=== PATIENT | female | born 1960 | race Caucasian/White ===

== ENCOUNTER 2020-01-29 16:34 | Emergency (ER) | payer MEDICARE, MEDICAID, SELFPAY ==
[2020-01-29 16:55] VITALS: BP 106/65; PULSE 96; RESP 26; TEMP 36.6; O2SAT 94; BMI 20.5
[2020-01-29 17:19] VITALS: BP 101/59; PULSE 96; RESP 26; O2SAT 96
[2020-01-29 17:30] LABS: Basophils # 0.1 10^3/uL (0.0-0.1); Basophils % 0.7 %; Eosinophils # 0.1 10^3/uL (0.0-0.8); Eosinophils % 0.7 %; Hemoglobin 12.2 g/dL (11.5-15.3); Lymphocytes # 1.6 10^3/uL (0.8-4.8); Lymphocytes % 21.9 %; Mean Corpuscular HGB Conc 33.9 g/dL (30.0-36.0); Mean Corpuscular Hemoglobin 30.1 pg (28.0-34.0); Mean Corpuscular Volume 88.9 fL (81-99); Mean Platelet Volume 11.2 fL (7.4-10.4); Monocytes # 0.8 10^3/uL (0.2-0.9); Monocytes % 10.5 %; Neutrophils # 4.8 10^3/uL (1.8-7.7); Neutrophils % 66.1 %; Nucleated Red Blood Cells % 0 %; Platelet Count 193 10^3/cmm (130-400); Red Blood Count 4.05 10^6/uL (4.1-5.3); Red Cell Distribution Width 13.5 % (12.1-15.1); White Blood Count 7.2 10^3/uL (4.0-10.0)
--- NOTE | 2020-01-29 17:44 | CTR_ITS ---
PROCEDURE INFORMATION: Exam: CT Head Without Contrast Exam date and time: 01/29/2020 5:54 PM Age: 59 years old Clinical indication: Alteration of consciousness; Somnolence (drowsiness); Additional info: Intoxicated seizures altered mental status TECHNIQUE: Imaging protocol: Computed tomography of the head without contrast. Radiation optimization: All CT scans at this facility use at least one of these dose optimization techniques: automated exposure control; mA and/or kV adjustment per patient size (includes targeted exams where dose is matched to clinical indication); or iterative reconstruction. COMPARISON: No relevant prior studies available. RADIATION DOSE METRICS: Total DLP: 619.63 mGy-cm FINDINGS: Brain: Normal. No hemorrhage. Unremarkable white matter. No mass effect. Ventricles: Normal. No ventriculomegaly. Bones/joints: Unremarkable. No acute fracture. Sinuses: Visualized sinuses are unremarkable. No fluid levels. Mastoid air cells: Visualized mastoid air cells are well aerated. Soft tissues: Unremarkable. CT/CT head wo con* [id number] IMPRESSION: No acute intracranial abnormality. Radiation Dose CTDIVOL = (mGy): DLP = 619.63 (mGy-cm)
[2020-01-29 17:57] LABS: Alanine Aminotransferase 10 U/L (0-33); Albumin Level 4.1 g/dL (3.5-5.2); Alcohol Level 105 mg/dL (0-10); Alkaline Phosphatase 112 IU/L (35-105); Anion Gap 17.2 (5-19); Aspartate Amino Transferase 16 U/L (0-32); Blood Urea Nitrogen 9 mg/dL (6-20); Calcium 8.8 mg/dL (8.5-10.5); Carbon Dioxide 25 mmol/L (22-29); Chloride 102 mmol/L (98-107); Globulin 2.6 g/dL (1.3-4.6); Glomerular Filtration Rate 85.6 mL/min (90-130); Glucose 104 mg/dL (65-115); Osmolality Calculated 288 mOsm/kg (285-295); Potassium 3.2 mmol/L (3.5-5.1); Sodium 141 mmol/L (136-145); Thyroid Stimulating Hormone 1.79 uIU/mL (0.27-4.20); Total Bilirubin 0.5 mg/dL (0.15-1.2); Total Protein 6.7 g/dL (6.6-8.7)
--- NOTE | 2020-01-29 18:07 | W.ED.GENADLT ---
Documented by User: Catrachito Heard DO 01/31/20 16:07 HPI - General Adult General: Chief complaint: General Medical Stated complaint: ETOH ON BOARD; WANT MED CHANGES Time Seen by Provider: 01/29/20 16:56 History of Present Illness: HPI narrative: 59-year-old female brought in by EMS initially on arrival she is nonresponsiv she reportedly she had been drinking heavily and had a seizure. EMS was called to a local convenience store where they found her she was essentially nonresponsive they were told had a history of seizures. But she is not been able to tell us anything initially. When I went back to the room to reevaluate her she was actually laying back and was not controlling her airway well and went to do a sternal rub and set her up she woke up and was nonverbal. She began breathing good and her sats were normal. She admits to drinking heavily today she has not taken her antiseizure medication she usually takes Keppra. She thinks she had a seizure and cannot really tell me much more than that there is very little in the way of old records to review. Onset (ago): hour(s) Severity: severe Associated symptoms: Reports seizures; Deny chest pain, dyspnea, nausea or vomiting Review of Systems Card: Denies: chest pain, edema, shortness of breath on exertion or shortness of breath when lying down Resp: Denies: shortness of breath, productive cough or non-productive cough GI: Denies: abdominal pain, nausea, vomiting, vomiting blood, coffee grounds in vomit, diarrhea, constipation, bloating, blood in stool or black tarry stool : Denies: flank pain, difficulty urinating, painful urination, urinary frequency or urinary urgency PFS ED PFSH: Social History Smoking and tobacco status: current every day smoker Physical Exam HENMT: COMMON NORMALS: normocephalic, head/scalp atraumatic, hearing grossly normal bilaterally, external ears normal, EAC's normal, TM's normal bilaterally, nasal mucous membranes and turbinates normal, moist oral mucous membranes and oropharynx normal HEAD & SCALP: normocephalic and atraumatic NOSE: nasal mucous membranes and turbinates normal EXTERNAL EAR: Yes external ears normal EXTERNAL AUDITORY CANAL: EAC's normal TYMPANIC MEMBRANE: TM's normal bilaterally Eye: COMMON NORMALS: PERRL, EOMs intact bilaterally, conjunctivae normal and no scleral icterus CONJUNCTIVA: Yes conjunctivae normal PUPIL: Yes PERRL Neck/C-Spine: COMMON NORMALS: full ROM, no lymphadenopathy, supple and no JVD Lymph: LYMPHATIC: no lymphadenopathy noted and no lymphedema noted Resp: COMMON NORMALS: normal respiratory effort, no retractions, no use of accessory muscles and clear to auscultation bilaterally AUSCULTATION: clear to auscultation bilaterally Cardio: COMMON NORMALS: no JVD, regular rate, regular rhythm and no murmurs RATE: regular rate RHYTHM: regular rhythm GI: COMMON NORMALS: soft to palpation and no hepatosplenomegaly AUSCULTATION: Yes normoactive bowel sounds PALPATION: Yes soft, No tender, No guarding and Yes no hepatosplenomegaly Extremity: COMMON NORMALS: normal to inspection, normal capillary refill, no clubbing, cyanosis or edema, no calf tenderness and no pedal edema Skin: COMMON NORMALS: no rashes or lesions noted GENERAL SKIN EXAM: no rashes or lesions noted Course Vital Signs: Vital signs: Vital Signs Temperature 99.0 F 01/29/20 20:34 Pulse Rate 102 H 01/29/20 20:34 Respiratory Rate 24 H 01/29/20 20:34 Blood Pressure 127/89 01/29/20 20:34 Pulse Oximetry 98 01/29/20 20:34 MDM - General Adult MDM Narrative: Medical decision making narrative: Care turned over to Dr. Dasilva at change of shift Lab Data: Labs: Lab Results 01/29/20 01/29/20 01/29/20 Range/Units 17:20 17:20 18:23 WBC 7.2 (4.0-10.0) 10^3/ uL RBC 4.05 L (4.1-5.3) 10^6/u L Hgb 12.2 (11.5-15.3) g/dL Hct 36.0 L (37.0-47.0) % MCV 88.9 (81-99) fL MCH 30.1 (28.0-34.0) pg MCHC 33.9 (30.0-36.0) g/dL RDW 13.5 (12.1-15.1) % Plt Count 193 (130-400) 10^3/c mm MPV 11.2 H (7.4-10.4) fL Neut % (Auto) 66.1 % Lymph % (Auto) 21.9 % [place] % (Auto) 10.5 % Eos % (Auto) 0.7 % Baso % (Auto) 0.7 % Neut # (Auto) 4.8 (1.8-7.7) 10^3/u L Lymph # (Auto) 1.6 (0.8-4.8) 10^3/u L [place] # (Auto) 0.8 (0.2-0.9) 10^3/u L Eos # (Auto) 0.1 (0.0-0.8) 10^3/u L Baso # (Auto) 0.1 (0.0-0.1) 10^3/u L Nucleated RBC % (a uto) 0 % Nucleated RBCs # 0.0 /100WBC Sodium 141 (136-145) mmol/L Potassium 3.2 L (3.5-5.1) mmol/L Chloride 102 (98-107) mmol/L Carbon Dioxide 25 (22-29) mmol/L Anion Gap 17.2 (5-19) BUN 9 (6-20) mg/dL Creatinine 0.7 (0.5-0.9) mg/dL GFR Calculation 85.6 L (90-130) mL/min Glucose 104 (65-115) mg/dL Calculated Osmolal ity 288 (285-295) mOsm/k g Calcium 8.8 (8.5-10.5) mg/dL Total Bilirubin 0.5 (0.15-1.2) mg/dL AST 16 (0-32) U/L ALT 10 (0-33) U/L Alkaline Phosphata se 112 H (35-105) IU/L Total Protein 6.7 (6.6-8.7) g/dL Albumin 4.1 (3.5-5.2) g/dL Globulin 2.6 (1.3-4.6) g/dL TSH 1.79 (0.27-4.20) uIU/ mL Urine Color Yellow (Yellow) Urine Appearance Hazy A (CLEAR) Urine pH 5 (5-7) Ur Specific Gravit y 1.010 (1.005-1.030) Urine Protein Neg (Negative) Urine Glucose (UA) Norm (Normal) Urine Ketones Negative (Negative) Urine Blood 2+ H (Negative) Urine Nitrate Positive H (Negative) Urine Bilirubin Neg (NEGATIVE) Urine Urobilinogen Norm (Negative) mg/dL Ur Leukocyte Ling ase 2+ H (Negative) Urine RBC 15-25 H (0-2) /hpf Urine WBC 80-100 H (0-5) /hpf Ur Squamous Epith Cells 15-25 H (0-5) Ur Transition Epit h Cell 0-4 /hpf Urine Bacteria 2+ H (NONE) Urine Mucus 1+ Urine Trichomonas 1+ H Salicylates < 0.3 L (3-10) mg/dL Urine Opiates Scre en (Negative) ng/mL Acetaminophen < 5.0 L (10-30) ug/mL Ur Barbiturates Sc reen (Negative) ng/mL Phenytoin < 0.8 L (10-20) ug/mL Valproic Acid < 2.8 L (50-100) mcg/mL Carbamazepine < 2.0 L (4.0-12.0) ug/mL Ur Phencyclidine S crn (Negative) ng/mL Ur Amphetamines Sc reen (Negative) ng/mL U Benzodiazepines Scrn (Negative) ng/mL Urine Cocaine Scre en (Negative) ng/mL U Marijuana (THC) Screen (Negative) ng/mL Ethyl Alcohol 105 H (0-10) mg/dL 01/29/20 Range/Units 18:23 WBC (4.0-10.0) 10^3/ uL RBC (4.1-5.3) 10^6/u L Hgb (11.5-15.3) g/dL Hct (37.0-47.0) % MCV (81-99) fL MCH (28.0-34.0) pg MCHC (30.0-36.0) g/dL RDW (12.1-15.1) % Plt Count (130-400) 10^3/c mm MPV (7.4-10.4) fL Neut % (Auto) % Lymph % (Auto) % [place] % (Auto) % Eos % (Auto) % Baso % (Auto) % Neut # (Auto) (1.8-7.7) 10^3/u L Lymph # (Auto) (0.8-4.8) 10^3/u L [place] # (Auto) (0.2-0.9) 10^3/u L Eos # (Auto) (0.0-0.8) 10^3/u L Baso # (Auto) (0.0-0.1) 10^3/u L Nucleated RBC % (a uto) % Nucleated RBCs # /100WBC Sodium (136-145) mmol/L Potassium (3.5-5.1) mmol/L Chloride (98-107) mmol/L Carbon Dioxide (22-29) mmol/L Anion Gap (5-19) BUN (6-20) mg/dL Creatinine (0.5-0.9) mg/dL GFR Calculation (90-130) mL/min Glucose (65-115) mg/dL Calculated Osmolal ity (285-295) mOsm/k g Calcium (8.5-10.5) mg/dL Total Bilirubin (0.15-1.2) mg/dL AST (0-32) U/L ALT (0-33) U/L Alkaline Phosphata se (35-105) IU/L Total Protein (6.6-8.7) g/dL Albumin (3.5-5.2) g/dL Globulin (1.3-4.6) g/dL TSH (0.27-4.20) uIU/ mL Urine Color (Yellow) Urine Appearance (CLEAR) Urine pH (5-7) Ur Specific Gravit y (1.005-1.030) Urine Protein (Negative) Urine Glucose (UA) (Normal) Urine Ketones (Negative) Urine Blood (Negative) Urine Nitrate (Negative) Urine Bilirubin (NEGATIVE) Urine Urobilinogen (Negative) mg/dL Ur Leukocyte Ling ase (Negative) Urine RBC (0-2) /hpf Urine WBC (0-5) /hpf Ur Squamous Epith Cells (0-5) Ur Transition Epit h Cell /hpf Urine Bacteria (NONE) Urine Mucus Urine Trichomonas Salicylates (3-10) mg/dL Urine Opiates Scre en Negative (Negative) ng/mL Acetaminophen (10-30) ug/mL Ur Barbiturates Sc reen Negative (Negative) ng/mL Phenytoin (10-20) ug/mL Valproic Acid (50-100) mcg/mL Carbamazepine (4.0-12.0) ug/mL Ur Phencyclidine S crn Negative (Negative) ng/mL Ur Amphetamines Sc reen Negative (Negative) ng/mL U Benzodiazepines Scrn Positive H (Negative) ng/mL Urine Cocaine Scre en Negative (Negative) ng/mL U Marijuana (THC) Screen Positive H (Negative) ng/mL Ethyl Alcohol (0-10) mg/dL Discharge Plan Discharge Patient Disposition: Home, Self-Care Clinical Impression: Seizure Alcohol intoxication Qualifiers: Complication of substance-induced condition: with unspecified complication Qualified Code(s): F10.929 - Alcohol use, unspecified with intoxication, unspecified Condition: Stable Prescriptions: New Keppra 500 mg tablet 500 mg PO BID 14 Days Qty: 28 RF: 0 Discharge Orders: Discharge Order (Routine); Ordered 01/29/20 Ordered By: Jose Enrique Dasilva Discharge Diet: Advance as tolerated Discharge Activity: Limit activity as instructed Patient Instructions: Alcohol Withdrawal (ED), Recurrent Seizures Adult (ED) Activity Restrictions/Additional Instructions: Avoid the use of alcohol, as it causes withdrawal seizures. Medication as directed. See your neurologist as soon as possible. Return for worsening mental status, repeated episodes of seizure, other concerning symptoms. Discharge Date/Time: 01/29/20 20:36 Coding Level of Care Code ED Mop Maker for Chg Fwd Exam Comprehensive Documented by User: Jose Enrique Dasilva DO 01/30/20 01:14 HPI - General Adult General: Chief complaint: General Medical Stated complaint: ETOH ON BOARD; WANT MED CHANGES Time Seen by Provider: 01/29/20 16:56 PFSH ED PFSH: Social History Smoking and tobacco status: current every day smoker Course Vital Signs: Vital signs: Vital Signs Temperature 99.0 F 01/29/20 20:34 Pulse Rate 102 H 01/29/20 20:34 Respiratory Rate 24 H 01/29/20 20:34 Blood Pressure 127/89 01/29/20 20:34 Pulse Oximetry 98 01/29/20 20:34 MDM - General Adult MDM Narrative: Medical decision making narrative: 59-year-old female with a history of seizure disorder. She presented after drinking alcohol, and having a prolonged seizure evidently, she had not been taking her Keppra reliably as well. She was infused with Keppra here. She did not seize again. She had a somewhat prolonged postictal phase, but walked in the ER, and was returning to baseline. Her laboratory is not terribly remarkable save for mildly low potassium, and an alcohol level of 105. Chest x-ray was negative. She will be allowed discharge Lab Data: Labs: Lab Results 01/29/20 01/29/20 01/29/20 Range/Units 17:20 17:20 18:23 WBC 7.2 (4.0-10.0) 10^3/ uL RBC 4.05 L (4.1-5.3) 10^6/u L Hgb 12.2 (11.5-15.3) g/dL Hct 36.0 L (37.0-47.0) % MCV 88.9 (81-99) fL MCH 30.1 (28.0-34.0) pg MCHC 33.9 (30.0-36.0) g/dL RDW 13.5 (12.1-15.1) % Plt Count 193 (130-400) 10^3/c mm MPV 11.2 H (7.4-10.4) fL Neut % (Auto) 66.1 % Lymph % (Auto) 21.9 % [place] % (Auto) 10.5 % Eos % (Auto) 0.7 % Baso % (Auto) 0.7 % Neut # (Auto) 4.8 (1.8-7.7) 10^3/u L Lymph # (Auto) 1.6 (0.8-4.8) 10^3/u L [place] # (Auto) 0.8 (0.2-0.9) 10^3/u L Eos # (Auto) 0.1 (0.0-0.8) 10^3/u L Baso # (Auto) 0.1 (0.0-0.1) 10^3/u L Nucleated RBC % (a uto) 0 % Nucleated RBCs # 0.0 /100WBC Sodium 141 (136-145) mmol/L Potassium 3.2 L (3.5-5.1) mmol/L Chloride 102 (98-107) mmol/L Carbon Dioxide 25 (22-29) mmol/L Anion Gap 17.2 (5-19) BUN 9 (6-20) mg/dL Creatinine 0.7 (0.5-0.9) mg/dL GFR Calculation 85.6 L (90-130) mL/min Glucose 104 (65-115) mg/dL Calculated Osmolal ity 288 (285-295) mOsm/k g Calcium 8.8 (8.5-10.5) mg/dL Total Bilirubin 0.5 (0.15-1.2) mg/dL AST 16 (0-32) U/L ALT 10 (0-33) U/L Alkaline Phosphata se 112 H (35-105) IU/L Total Protein 6.7 (6.6-8.7) g/dL Albumin 4.1 (3.5-5.2) g/dL Globulin 2.6 (1.3-4.6) g/dL TSH 1.79 (0.27-4.20) uIU/ mL Urine Color Yellow (Yellow) Urine Appearance Hazy A (CLEAR) Urine pH 5 (5-7) Ur Specific Gravit y 1.010 (1.005-1.030) Urine Protein Neg (Negative) Urine Glucose (UA) Norm (Normal) Urine Ketones Negative (Negative) Urine Blood 2+ H (Negative) Urine Nitrate Positive H (Negative) Urine Bilirubin Neg (NEGATIVE) Urine Urobilinogen Norm (Negative) mg/dL Ur Leukocyte Ling ase 2+ H (Negative) Urine RBC 15-25 H (0-2) /hpf Urine WBC 80-100 H (0-5) /hpf Ur Squamous Epith Cells 15-25 H (0-5) Ur Transition Epit h Cell 0-4 /hpf Urine Bacteria 2+ H (NONE) Urine Mucus 1+ Urine Trichomonas 1+ H Salicylates < 0.3 L (3-10) mg/dL Urine Opiates Scre en (Negative) ng/mL Acetaminophen < 5.0 L (10-30) ug/mL Ur Barbiturates Sc reen (Negative) ng/mL Phenytoin < 0.8 L (10-20) ug/mL Valproic Acid < 2.8 L (50-100) mcg/mL Carbamazepine < 2.0 L (4.0-12.0) ug/mL Ur Phencyclidine S crn (Negative) ng/mL Ur Amphetamines Sc reen (Negative) ng/mL U Benzodiazepines Scrn (Negative) ng/mL Urine Cocaine Scre en (Negative) ng/mL U Marijuana (THC) Screen (Negative) ng/mL Ethyl Alcohol 105 H (0-10) mg/dL 01/29/20 Range/Units 18:23 WBC (4.0-10.0) 10^3/ uL RBC (4.1-5.3) 10^6/u L Hgb (11.5-15.3) g/dL Hct (37.0-47.0) % MCV (81-99) fL MCH (28.0-34.0) pg MCHC (30.0-36.0) g/dL RDW (12.1-15.1) % Plt Count (130-400) 10^3/c mm MPV (7.4-10.4) fL Neut % (Auto) % Lymph % (Auto) % [place] % (Auto) % Eos % (Auto) % Baso % (Auto) % Neut # (Auto) (1.8-7.7) 10^3/u L Lymph # (Auto) (0.8-4.8) 10^3/u L [place] # (Auto) (0.2-0.9) 10^3/u L Eos # (Auto) (0.0-0.8) 10^3/u L Baso # (Auto) (0.0-0.1) 10^3/u L Nucleated RBC % (a uto) % Nucleated RBCs # /100WBC Sodium (136-145) mmol/L Potassium (3.5-5.1) mmol/L Chloride (98-107) mmol/L Carbon Dioxide (22-29) mmol/L Anion Gap (5-19) BUN (6-20) mg/dL Creatinine (0.5-0.9) mg/dL GFR Calculation (90-130) mL/min Glucose (65-115) mg/dL Calculated Osmolal ity (285-295) mOsm/k g Calcium (8.5-10.5) mg/dL Total Bilirubin (0.15-1.2) mg/dL AST (0-32) U/L ALT (0-33) U/L Alkaline Phosphata se (35-105) IU/L Total Protein (6.6-8.7) g/dL Albumin (3.5-5.2) g/dL Globulin (1.3-4.6) g/dL TSH (0.27-4.20) uIU/ mL Urine Color (Yellow) Urine Appearance (CLEAR) Urine pH (5-7) Ur Specific Gravit y (1.005-1.030) Urine Protein (Negative) Urine Glucose (UA) (Normal) Urine Ketones (Negative) Urine Blood (Negative) Urine Nitrate (Negative) Urine Bilirubin (NEGATIVE) Urine Urobilinogen (Negative) mg/dL Ur Leukocyte Ling ase (Negative) Urine RBC (0-2) /hpf Urine WBC (0-5) /hpf Ur Squamous Epith Cells (0-5) Ur Transition Epit h Cell /hpf Urine Bacteria (NONE) Urine Mucus Urine Trichomonas Salicylates (3-10) mg/dL Urine Opiates Scre en Negative (Negative) ng/mL Acetaminophen (10-30) ug/mL Ur Barbiturates Sc reen Negative (Negative) ng/mL Phenytoin (10-20) ug/mL Valproic Acid (50-100) mcg/mL Carbamazepine (4.0-12.0) ug/mL Ur Phencyclidine S crn Negative (Negative) ng/mL Ur Amphetamines Sc reen Negative (Negative) ng/mL U Benzodiazepines Scrn Positive H (Negative) ng/mL Urine Cocaine Scre en Negative (Negative) ng/mL U Marijuana (THC) Screen Positive H (Negative) ng/mL Ethyl Alcohol (0-10) mg/dL Discharge Plan Discharge Patient Disposition: Home, Self-Care Clinical Impression: Seizure Alcohol intoxication Qualifiers: Complication of substance-induced condition: with unspecified complication Qualified Code(s): F10.929 - Alcohol use, unspecified with intoxication, unspecified Condition: Stable Prescriptions: New Keppra 500 mg tablet 500 mg PO BID 14 Days Qty: 28 RF: 0 Discharge Orders: Discharge Order (Routine); Ordered 01/29/20 Ordered By: Jose Enrique Dasilva Discharge Diet: Advance as tolerated Discharge Activity: Limit activity as instructed Patient Instructions: Alcohol Withdrawal (ED), Recurrent Seizures Adult (ED) Activity Restrictions/Additional Instructions: Avoid the use of alcohol, as it causes withdrawal seizures. Medication as directed. See your neurologist as soon as possible. Return for worsening mental status, repeated episodes of seizure, other concerning symptoms. Discharge Date/Time: 01/29/20 20:36 Coding Level of Care Code ED Mop Maker for Jacey Fwjesus Exam Comprehensive
[2020-01-29 18:14] LABS: Acetaminophen < 5.0 ug/mL (10-30); Salicylate < 0.3 mg/dL (3-10)
[2020-01-29 18:16] LABS: Phenytoin Dilantin < 0.8 ug/mL (10-20)
[2020-01-29 18:17] LABS: Carbamazepine Tegretol < 2.0 ug/mL (4.0-12.0)
[2020-01-29 18:18] LABS: Valproic Acid Level < 2.8 mcg/mL (50-100)
[2020-01-29 18:21] VITALS: BP 100/72; PULSE 104; RESP 22; O2SAT 98
[2020-01-29 18:31] LABS: Blood Urine 2+ (Negative); Glucose Urine UA Norm (Normal); Ketones Urine Negative (Negative); Nitrate Urine Positive (Negative); Protein Urine Neg (Negative); Urine Appearance Hazy (CLEAR); Urine Color Yellow (Yellow); pH Urine 5 (5-7)
[2020-01-29 18:32] VITALS: BP 98/64; PULSE 98; RESP 26; O2SAT 95
[2020-01-29 18:32] LABS: Add Urine Microscopic? YES; Bilirubin Urine Neg (NEGATIVE); Leukocyte Esterase Urine 2+ (Negative); Urobilinogen Urine Norm (Negative)
[2020-01-29 18:40] LABS: Amphetamines Screen Urine Negative (Negative); Barbiturates Screen Urine Negative (Negative); Benzodiazepines Screen Urine Positive (Negative); Cocaine Screen Urine Negative (Negative); Opiate Screen Urine Negative (Negative); PCP Screen Urine Negative (Negative); RBC Urine 15-25 /hpf (0-2); THC Screen Urine Positive (Negative); WBC Urine 80-100 /hpf (0-5)
[2020-01-29 18:41] LABS: Bacteria Urine 2+; Mucus Urine 1+; Squamous Epithelial Cell Urine 15-25 (0-5); Transitional Epi Cells Urine 0-4 /hpf; Trichomonas Urine 1+
[2020-01-29 18:42] LABS: Add Urine Culture? No
[2020-01-29] MEDS: sodium chloride 0.9% 1,000 ML 999 ML IV (18:58)
[2020-01-29] MEDS: cefTRIAXone 1,000 MG in sodium chloride 0.9% (plus) 50 ML 100 MG IV (18:59)
--- NOTE | 2020-01-29 20:09 | PC.NURSE ---
Performed a road test on the patient, patient walked from her room to the nurses station. She walked with little to no assistance. On the walk back she did stumble a couple times but she did regain her balance, she was much easier to wake up and get her to orient to her surroundings. Doctor saw her walked by and is aware of how she performed on the road test.
[2020-01-29 20:34] VITALS: BP 127/89; PULSE 102; RESP 24; TEMP 37.2; O2SAT 98
== END 2020-01-29 20:36 | disposition home or self-care (01) ==
PROVIDERS: Family Medicine; Emergency Provider Emergency Medicine
DX: R56.9 Unspecified convulsions (principal); F10.929 Alcohol use, unspecified with intoxication, unspecified; F17.210 Nicotine dependence, cigarettes, uncomplicated
CPT/HCPCS: 12345; 51701; 70450; 80053; 80156; 80164; 80185; 80306; 80307; 81001; 84443; 85025; 96365; 96375; 99283; J0696; J1953; J7030

== ENCOUNTER 2021-06-05 11:15 | Outpatient (CLI) | payer MEDICARE, MEDICAID, SELFPAY ==
--- NOTE | 2021-06-05 11:30 | CT_ITS ---
WS: [id number] CT NECK TECHNIQUE: Contrast-enhanced CT of the neck with coronal and sagittal reformatted images. CLINICAL INFORMATION: LOCALIZED SWELLING, MASS AND LUMP NECK COMPARISON: None. DLP: 485.[address] scans at [facility] use at least one of these dose optimization techniques: automated e xposure control; mA and/or kV adjustment per patient size (includes targeted exams where dose is matc hed to clinical indication); or iterative reconstruction. FINDINGS:Palpable marker overlying the left lower neck. Numerous enlarged heterogeneously enhancing l ymph nodes in the left lower neck posterior triangle deep to the sternocleidomastoid extending into t he supraclavicular region, subpectoral, with additional partially visualized enlarged enhancing left axillary lymph nodes. Largest lymph nodes measure up to 2 cm. Parotid glands are normal. Normal submandibular glands. Normal parapharyngeal fat. Normal posterior n asopharynx. No evidence of supraglottic or glottic mass. Subglottic airway is patent. Small noncalcified nodule right lung apex measuring 3 mm. Fibrosis left lung apex. Advanced spondylit ic changes cervical spine. Grade 1 anterolisthesis C3 on C4. Disc space narrowing with endplate degen erative changes throughout the cervical spine. CT/CT neck w con* [id number] IMPRESSION: 1. In the area of concern left lower neck, there are numerous enlarged cluster ed heterogeneously enhancing lymph nodes suspicious for neoplasm. Abnormal lymp h nodes extends into the supraclavicular and infraclavicular region and left ax illa partially visualized. Findings suspicious for neoplasm. Recommend contrast -enhanced CT chest abdomen pelvis in further evaluation. Lymph nodes could be s ampled with ultrasound-guided biopsy. 2. No evidence of supraglottic or glottic mass. Normal parapharyngeal fat. 3. Normal salivary glands. 4. Noncalcified nodule right upper lobe measuring throughout 3 mm. 5. Advanced spondylitic changes cervical spine.
[2021-06-05] MEDS: iohexol 300 mg/mL 100 mL Btl IV (11:47)
== END 2021-06-05 11:16 | disposition home or self-care (01) ==
PROVIDERS: Visit Provider Nurse Practitioner Family
DX: R91.1 Solitary pulmonary nodule (principal); R59.0 Localized enlarged lymph nodes
CPT/HCPCS: 70491; Q9967

== ENCOUNTER 2021-06-21 10:08 | Outpatient (CLI) | payer MEDICARE, MEDICAID, SELFPAY ==
--- NOTE | 2021-06-21 10:15 | CT_ITS ---
WS: [id number] CT ABDOMEN PELVIS TECHNIQUE: Contrast-enhanced CT of the abdomen and pelvis with coronal and sagittal reformatted image s. CLINICAL INFORMATION: ENCOUNTER FOR SCREENIG FOR MALIGNANT NEOPLASM OF OTHER SITES COMPARISON: CT neck June 05, 2021 DLP: 1106.[address] scans at [facility] use at least one of these dose optimization techniques: automated e xposure control; mA and/or kV adjustment per patient size (includes targeted exams where dose is matc hed to clinical indication); or iterative reconstruction. FINDINGS:Indeterminant enhancing polypoid lesion in the distal sigmoid colon measuring 2.0 x 2.0 susp icious for neoplasm. Recommend further evaluation with colonoscopy. This is slightly eccentric to the left and may be attached to the wall. Diffuse fatty infiltration of the liver. Hepatomegaly. Normal portal vein and splenic vein. Normal GE junction. Fluid distended stomach. Adrenal glands are normal. Normal renal parenchymal enhancement. No hydronephrosis. Calcified right renal lesion. No hydronephrosis. Small right renal cyst. Normal pa ncreas. Sigmoid diverticulosis. No evidence of acute diverticulitis. A few shoddy periaortic lymph nodes. No periaortic or retroperitoneal lymphadenopathy. No inguinal lymphadenopathy. Grade 1 anterolisthesis L4 on L5. Disc space narrowing worse L5-S1. Prominent periuterine and pelvic varicosities. Low-attenuation fundal lesion likely fibroid measuring [address]/CT abdomen pelvis w con* [id number] IMPRESSION: 1. Hepatomegaly with diffuse fatty infiltration of the liver. 2. Enhancing polypoid lesion in the distal sigmoid colon measuring 2.0 x 2.0 c m suspicious for neoplasm Recommend further evaluation with colonoscopy. 3. A few shoddy periaortic lymph nodes. No abdominal or pelvic pathologic lymp hadenopathy. No inguinal lymphadenopathy. 4. Prominent pelvic and periuterine varices with a low-attenuation lesion in t he uterine fundus likely fibroid measuring 1.8 cm. This can be further evaluate d with ultrasound. 5. Sigmoid diverticulosis.
[2021-06-21] MEDS: iohexol 300 mg/mL 50 mL Btl PO (11:23)
[2021-06-21] MEDS: iohexol 300 mg/mL 100 mL Btl IV (11:40)
== END 2021-06-21 10:09 | disposition home or self-care (01) ==
PROVIDERS: PCP Nurse Practitioner Family; Visit Provider Nurse Practitioner Family
DX: Z12.89 Encounter for screening for malignant neoplasm of other sites (principal); K57.30 Diverticulosis of large intestine without perforation or abscess without bleeding; N85.8 Other specified noninflammatory disorders of uterus; K63.5 Polyp of colon
CPT/HCPCS: 74177; Q9967

== ENCOUNTER → 2021-10-22 11:09 | Outpatient (BNVA) | payer MEDICARE, MEDICAID, SELFPAY | PROVIDERS: PCP Nurse Practitioner Family; Visit Provider Social Worker | DX: F43.10 Post-traumatic stress disorder, unspecified (principal); F33.2 Major depressive disorder, recurrent severe without psychotic features | CPT/HCPCS: 90832 ==